=== PATIENT | male | born 1960 | race Caucasian/White ===

== ENCOUNTER 2018-04-03 10:13 | Day surgery (SDC) | payer OTHER ==
[~2018-04-03] VITALS: Ht 175.3 cm; Wt 109.0 kg
[2018-04-03 10:45] VITALS: BP 118/94
[2018-04-03] MEDS ORDERED: APIX5TAB PO (11:00)
[2018-04-03] MEDS ORDERED: ROSU10TA PO (11:00)
[2018-04-03] MEDS ORDERED: METH500T97 PO (11:00)
[2018-04-03] MEDS ORDERED: HYDR25TA6 PO (11:00)
[2018-04-03] MEDS ORDERED: TADA5TAB2 PO (11:00)
[2018-04-03] MEDS ORDERED: METO25TA91 PO (11:00)
[2018-04-03] MEDS ORDERED: EPIN0.3P2 INJ (11:00)
[2018-04-03] MEDS ORDERED: LEVO137T2 PO (11:00)
[2018-04-03] MEDS ORDERED: MULT-6 PO (11:00)
[2018-04-03 11:13] LABS: ANION GAP 7 mmol/L (5-15); CALCIUM 8.5 mg/dL (8.5-10.1); CHLORIDE 101 mmol/L (98-107); CREATININE 1.01 mg/dL (0.7-1.3)
[2018-04-03] MEDS ORDERED: PROPOFOL 10 MG/ML, 20ML ONE (13:25)
== END 2018-04-03 14:45 | disposition home or self-care (01) ==
LOC: CACL 10:13
PROVIDERS: ATTEND Internal Medicine Cardiovascular Disease
DX: I48.91 Unspecified atrial fibrillation (principal); G47.30 Sleep apnea, unspecified; I10 Essential (primary) hypertension; E78.5 Hyperlipidemia, unspecified; E03.9 Hypothyroidism, unspecified; Z79.899 Other long term (current) drug therapy; Z88.8 Allergy status to other drugs, medicaments and biological substances; Z91.030 Bee allergy status
CPT/HCPCS: 36415; 80048; 92960; 93005; J2704

== ENCOUNTER → 2018-05-01 | Outpatient (CLI) | payer OTHER ==
[~2018-05-01] MED LIST: APIX5TAB PO; EPIN0.3P2 INJ; HYDR25TA6 PO; LEVO137T2 PO; METH500T97 PO; METO25TA91 PO; MULT-6 PO; ROSU10TA PO; TADA5TAB2 PO
== END | disposition home or self-care (01) ==
LOC: CFH 14:55
PROVIDERS: ATTEND Family Medicine
DX: M47.817 Spondylosis without myelopathy or radiculopathy, lumbosacral region (principal); M48.07 Spinal stenosis, lumbosacral region; M51.27 Other intervertebral disc displacement, lumbosacral region
CPT/HCPCS: 72148